=== PATIENT | female | born 1995 ===

== ENCOUNTER 2016-07-02 21:26 | Emergency (ER) | payer BC, OTHER ==
[2016-07-02] MEDS ORDERED: HYDROcodone/APAP 5/325 MG 1 TAB TABLET PO ONE (22:02)
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
--- NOTE | 2016-07-04 08:12 | RADIOLOGY REPORT ---
Four views of the left knee demonstrate no displaced fracture or dislocation. The visualized joints appear unremarkable. IMPRESSION: No displaced injury is identified. If clinically indicated, further evaluation and/or follow-up may be of benefit. ALBA
== END 2016-07-02 23:23 | disposition home or self-care (01) ==
LOC: ER 21:26
DX: S80.02XA Contusion of left knee, initial encounter (principal); W16.322A Fall into other water striking bottom causing other injury, initial encounter; Y92.828 Other wilderness area as the place of occurrence of the external cause; Y93.19 Activity, other involving water and watercraft
CPT/HCPCS: 99283